=== PATIENT | female | born 1950 | race Caucasian/White ===

== ENCOUNTER 2016-09-01 16:12 | Inpatient (IN) | payer MEDICARE, OTHER ==
[2016-09-01] VITALS (8 sets, daily range): BP systolic 108–159; BP diastolic 61–74; PULSE 72–103; RESP 18–20; TEMP 99.6–104.5; O2SAT 94–97
[~2016-09-01] VITALS: Ht 162.6 cm; Wt 89.0 kg
[2016-09-01 17:51] LABS: BLOOD, URINE TRACE (NEG); GLUCOSE,URINE NEG (NEG); KETONE, URINE NEG (NEG); NITRITE,URINE NEG (NEG)
[2016-09-01] MEDS ORDERED: CLON.5 PO (17:52)
[2016-09-01] MEDS ORDERED: MONT10TA2 PO (17:52)
[2016-09-01] MEDS ORDERED: ALBUAER3 INH (17:52)
[2016-09-01] MEDS ORDERED: MACR100C2 PO (17:52)
[2016-09-01] MEDS ORDERED: ACETAMINOPHEN 500 MG CPLT PO ONE (18:00)
[2016-09-01 18:04] LABS: URINE COLOR YELLOW (YELLW/STRAW)
[2016-09-01 18:05] LABS: MUCUS URINE OCC /lpf (OCC); SQUAMOUS EPITHELIAL CELL URINE 0-5 /hpf (0-5)
[2016-09-01 18:06] LABS: BACTERIA, URINE OCC /hpf; COMMENT (UR) CULTURE INDICATED; CULTURE IF INDICATED CULTURE INDICATED; WBC, URINE 15-19 /hpf (0-5)
[2016-09-01] MEDS ORDERED: SODIUM CHLOR 0.9% 1000 ML INJ 1,000 ML IV ONE ×2 (18:15)
--- NOTE | 2016-09-01 18:31 | PD ---
HPI Chief Complaint: GI Complaint Time Seen by Provider: 17:58 Travel History International Travel<30 days: No Contact w/Intl Traveler<30days: No Traveled to known affect area: No History of Present Illness HPI 66-year-old female says she is having diarrhea and generalized achiness. She is visiting from [place]. She had a Z-Bhavesh for a respiratory infection on August 05. August 24 she went to her doctor with suprapubic pain. A urine culture was obtained which showed 45,000 colonies of enterococcus which was sensitive to Cipro and Macrobid. She was initially started on Cipro. After a few days she was not feeling better so she called her doctor and was changed to Macrobid is currently on Macrobid today she is complaining of loose stools and aching all over. She has had fever. She gets Botox injections because of incontinence PFSH Past Medical History Asthma: Yes Anxiety: Yes Medical other: Yes (ALLERGIES) Respiratory: Yes (ASTHMA) Immunizations Current: Yes Influenza Vaccination: Yes ?: Not Menopausal: Yes Past Surgical History Appendectomy: Yes Cholecystectomy: Yes Social History Alcohol Use: Yes (VERY RARE) Tobacco Use: No (FORMER) Substance Use: No Allergies-Medications (Allergen,Severity, Reaction): Coded Allergies: Ceclor (Verified Allergy, Unknown, ITCHING, 09/01/16) Sulfa (Verified Allergy, Unknown, Anaphylaxis, 09/01/16) Biaxin (Verified Adverse Reaction, Unknown, STOMACHE PAIN, 09/01/16) Reported Meds & Prescriptions Reported Meds & Active Scripts Active Reported Macrobid (Nitrofurantoin Monoh/Nitrofur Macro) 100 Mg Cap 100 Mg PO BID Proair Hfa 8.5 GM Inh (Albuterol Sulfate) 90 Mcg/Act Aer 2 Puff INH BID 108 mcg/actuation Singulair (Montelukast Sodium) 10 Mg Tab 10 Mg PO HS Klonopin (Clonazepam) 0.5 Mg Tab 0.5 Mg PO TID Review of Systems General / Constitutional: Positive: Fever, Chills Eyes: No: Diploplia HENT: Positive: Headaches Cardiovascular: No: Chest Pain or Discomfort, Palpitations Respiratory: No: Cough, Shortness of Breath Gastrointestinal: Positive: Diarrhea, No: Hematemesis Genitourinary: No: Urgency, Frequency Musculoskeletal: Positive: Myalgias, Arthralgias Skin: No Rash, No Itching Neurologic: Positive: Weakness, Headache, No: Dizziness, Change in Mentation Endocrine: No: Heat Intolerance, Cold Intolerance Hematologic/Lymphatic: No: Easy Bruising Physical Exam Narrative GENERAL: Well-developed female, temperature is 104.1 SKIN: Warm and dry. HEAD: Atraumatic. Normocephalic. EYES: Pupils equal and round. No scleral icterus. No injection or drainage. ENT: No nasal bleeding or discharge. Mucous membranes pink and moist. NECK: Trachea midline. No JVD. CARDIOVASCULAR: Regular rate and rhythm. No murmur appreciated. RESPIRATORY: No accessory muscle use. Clear to auscultation. Breath sounds equal bilaterally. GASTROINTESTINAL: Abdomen soft, non-tender, nondistended. Hepatic and splenic margins not palpable. MUSCULOSKELETAL: No obvious deformities. No clubbing. No cyanosis. No edema. NEUROLOGICAL: Awake and alert. No obvious cranial nerve deficits. Motor grossly within normal limits. Normal speech. PSYCHIATRIC: Appropriate mood and affect; insight and judgment normal. Data Data Last Documented VS Vital Signs Date Time Temp Pulse Resp B/P Pulse Ox O2 Delivery O2 Flow Rate FiO2 09/01/16 18:41 94 18 132/61 96 Room Air 09/01/16 17:39 104.5 Orders Urinalysis - C+S If Indicated (09/01/16 17:23) Acetaminophen (Tylenol) (09/01/16 18:00) Urine Culture (09/01/16 17:18) Complete Blood Count With Diff (09/01/16 18:11) Comprehensive Metabolic Panel (09/01/16 18:11) Lactic Acid Sepsis Protocol (09/01/16 18:11) Magnesium (Mg) (09/01/16 18:11) Influenzae A/B Antigen (09/01/16 18:11) Blood Culture (09/01/16 18:11) Blood Glucose (09/01/16 18:11) Ecg Monitoring (09/01/16 18:11) Iv Access Insert/Monitor (09/01/16 18:11) Oximetry (09/01/16 18:11) Oxygen Administration (09/01/16 18:11) Sodium Chlor 0.9% 1000 Ml Inj (Ns 1000 M (09/01/16 18:15) Sodium Chlor 0.9% 1000 Ml Inj (Ns 1000 M (09/01/16 18:15) C Diff Toxin Pcr (09/01/16 19:02) Ibuprofen (Motrin) (09/01/16 19:30) Labs Laboratory Tests Test 09/01/16 09/01/16 17:18 18:30 Urine Color YELLOW Urine Turbidity SLIGHT Urine pH 7.0 Urine Specific [place] 1.016 Urine Protein TRACE mg/dL Urine Glucose (UA) NEG mg/dL Urine Ketones NEG mg/dL Urine Occult Blood TRACE Urine Nitrite NEG Urine Bilirubin NEG Urine Leukocyte Esterase NEG Urine RBC 4-9 /hpf Urine WBC 15-19 /hpf Urine WBC Clumps OCC Urine Squamous Epithelial 0-5 /hpf Cells Urine Bacteria OCC /hpf Urine Mucus OCC /lpf Microscopic Urinalysis Comment CULTURE INDICATED White Blood Count 9.9 TH/MM3 Red Blood Count 4.59 MIL/MM3 Hemoglobin 13.8 GM/DL Hematocrit 41.6 % Mean Corpuscular Volume 90.7 FL Mean Corpuscular Hemoglobin 30.0 PG Mean Corpuscular Hemoglobin 33.1 % Concent Red Cell Distribution Width 14.5 % Platelet Count 294 TH/MM3 Mean Platelet Volume 7.8 FL Neutrophils (%) (Auto) 83.5 % Lymphocytes (%) (Auto) 3.2 % Monocytes (%) (Auto) 6.2 % Eosinophils (%) (Auto) 4.3 % Basophils (%) (Auto) 2.8 % Neutrophils # (Auto) 8.3 TH/MM3 Lymphocytes # (Auto) 0.3 TH/MM3 Monocytes # (Auto) 0.6 TH/MM3 Eosinophils # (Auto) 0.4 TH/MM3 Basophils # (Auto) 0.3 TH/MM3 CBC Comment DIFF FINAL Differential Comment Sodium Level 139 MEQ/L Potassium Level 3.6 MEQ/L Chloride Level 107 MEQ/L Carbon Dioxide Level 24.6 MEQ/L Anion Gap 7 MEQ/L Blood Urea Nitrogen 12 MG/DL Creatinine 0.88 MG/DL Estimat Glomerular Filtration 64 ML/MIN Rate Random Glucose 107 MG/DL Lactic Acid Level 1.2 mmol/L Calcium Level 8.7 MG/DL Magnesium Level 2.2 MG/DL Total Bilirubin 0.4 MG/DL Aspartate Amino Transf 17 U/L (AST/SGOT) Alanine Aminotransferase 25 U/L (ALT/SGPT) Alkaline Phosphatase 76 U/L Total Protein 7.5 GM/DL Albumin 3.6 GM/DL MDM Medical Decision Making Medical Screen Exam Complete: Yes Emergency Medical Condition: Yes Medical Record Reviewed: Yes Differential Diagnosis Differential includes UTI, failure of outpatient treatment, C. difficile Narrative Course White count is 9000. Patient does have a persistent UTI with 15-19 white cells. She will be admitted Diagnosis Primary Impression: Urinary tract infection Qualified Code: N30.00 - Acute cystitis without hematuria Admitting Information Admitting Physician Requests: Admit Houston Barrera MD Sep 01, 2016 18:31
[2016-09-01 18:48] LABS: AUTOMATED NEUTROPHIL # 8.3 TH/MM3 (1.8-7.7); BASOPHIL # 0.3 TH/MM3 (0-0.2); BASOPHIL % 2.8 % (0.0-2.0); EOSINOPHIL # 0.4 TH/MM3 (0-0.4); EOSINOPHIL % 4.3 % (0.0-4.0); HEMATOCRIT 41.6 % (35.0-46.0); LYMPH % 3.2 % (9.0-44.0); LYMPHOCYTE # 0.3 TH/MM3 (1.0-4.8); MEAN CELL VOLUME 90.7 FL (80.0-100.0); MEAN CORPUSCULAR HGB CONC 33.1 % (32.0-36.0); MONO % 6.2 % (0.0-8.0); NEUT % 83.5 % (16.0-70.0); PLATELET COUNT 294 TH/MM3 (150-450); RED BLOOD COUNT 4.59 MIL/MM3 (4.00-5.30); RED CELL DISTRIBUTION WIDTH 14.5 % (11.6-17.2); WHITE BLOOD COUNT 9.9 TH/MM3 (4.0-11.0)
[2016-09-01 18:56] LABS: HEMO FLAGS DIFF FINAL
[2016-09-01 19:00] LABS: CHLORIDE 107 MEQ/L (98-107); POTASSIUM 3.6 MEQ/L (3.5-5.1); SODIUM (NA) 139 MEQ/L (136-145)
[2016-09-01 19:04] LABS: ANION GAP 7 MEQ/L (5-15); BICARBONATE 24.6 MEQ/L (21.0-32.0); BLOOD UREA NITROGEN 12 MG/DL (7-18); MAGNESIUM 2.2 MG/DL (1.5-2.5)
[2016-09-01 19:07] LABS: ALT (GPT) 25 U/L (10-53); AST (GOT) 17 U/L (15-37); GLOMERULAR FILTRATION RATE 64 ML/MIN (>89)
[2016-09-01 19:08] LABS: TOTAL BILIRUBIN ADULT 0.4 MG/DL (0.2-1.0)
[2016-09-01 19:10] LABS: ALKALINE PHOSPHATASE 76 U/L (45-117)
[2016-09-01] MEDS ORDERED: IBUPROFEN 600 MG TAB PO ONE (19:30)
[2016-09-01] MEDS ORDERED: cefTRIAXone INJ 1,000 MG in SODIUM CHLORIDE 0.9% INJ 100 ML IV ONE (20:00)
[2016-09-01] MEDS ORDERED: MORPHINE SULFATE 4 MG/ML INJ IV PRN (20:15)
[2016-09-01] MEDS ORDERED: BISACODYL 10 MG SUPP PR PRN (20:15)
[2016-09-01] MEDS ORDERED: SODIUM CHLORIDE 0.9% FLUSH 5 ML FLUSH FLUSH PRN (20:15)
[2016-09-01] MEDS ORDERED: ACETAMINOPHEN 325 MG TAB PO PRN (20:15)
[2016-09-01] MEDS ORDERED: ONDANSETRON HCL 4 MG/2 ML VIAL IVP PRN (20:15)
[2016-09-01] MEDS ORDERED: TOPA100T11 PO (22:27)
[2016-09-01] MEDS ORDERED: SPIRCAP INH (22:28)
[2016-09-01] MEDS: SODIUM CHLOR 0.9% 1000 ML INJ 1,000 ML IV SCH (22:32)
[2016-09-01] MEDS: SODIUM CHLORIDE 0.9% FLUSH 5 ML FLUSH FLUSH SCH (23:30)
[2016-09-01] MEDS: ALBUTEROL SULFATE 90 MCG/ACT HFA 8 GM INHALER INH SCH (23:30)
[2016-09-01] MEDS: MONTELUKAST SODIUM 10 MG TAB PO SCH (23:30)
[2016-09-02] VITALS (8 sets, daily range): BP systolic 87–133; BP diastolic 54–76; PULSE 67–90; RESP 18–20; TEMP 98.7–101; O2SAT 94–99
[2016-09-02] MEDS ORDERED: SODIUM CHLOR 0.9% 1000 ML INJ 1,000 ML IV ONE (05:15)
[2016-09-02] MEDS: RESP: ALBUTEROL 2.5 MG/IPRATROPIUM 0.5 MG NEB (PRN) NEB ×2 (05:44→19:28)
[2016-09-02 05:46] LABS: AUTOMATED NEUTROPHIL # 5.5 TH/MM3 (1.8-7.7); BASOPHIL % 0.4 % (0.0-2.0); EOSINOPHIL # 0.4 TH/MM3 (0-0.4); EOSINOPHIL % 5.9 % (0.0-4.0); HEMATOCRIT 37.5 % (35.0-46.0); HEMO FLAGS DIFF FINAL; LYMPH % 8.8 % (9.0-44.0); LYMPHOCYTE # 0.6 TH/MM3 (1.0-4.8); MEAN CELL VOLUME 90.9 FL (80.0-100.0); MEAN CORPUSCULAR HEMOGLOBIN 29.8 PG (27.0-34.0); MEAN CORPUSCULAR HGB CONC 32.8 % (32.0-36.0); MONO % 6.9 % (0.0-8.0); PLATELET COUNT 269 TH/MM3 (150-450); RED BLOOD COUNT 4.13 MIL/MM3 (4.00-5.30); RED CELL DISTRIBUTION WIDTH 13.8 % (11.6-17.2)
[2016-09-02 05:59] LABS: CHLORIDE 114 MEQ/L (98-107); POTASSIUM 3.6 MEQ/L (3.5-5.1); SODIUM (NA) 146 MEQ/L (136-145)
[2016-09-02] MEDS: SODIUM CHLOR 0.9% 1000 ML INJ 1,000 ML IV SCH ×2 (06:13→16:19)
[2016-09-02 07:06] LABS: ALKALINE PHOSPHATASE 65 U/L (45-117); ALT (GPT) 28 U/L (10-53); ANION GAP 8 MEQ/L (5-15); AST (GOT) 25 U/L (15-37); BICARBONATE 24.5 MEQ/L (21.0-32.0); BLOOD UREA NITROGEN 12 MG/DL (7-18); GLOMERULAR FILTRATION RATE 76 ML/MIN (>89); TOTAL BILIRUBIN ADULT 0.3 MG/DL (0.2-1.0)
[2016-09-02] MEDS: SODIUM CHLORIDE 0.9% FLUSH 5 ML FLUSH FLUSH SCH ×2 (08:58→20:00)
[2016-09-02] MEDS: clonazePAM 0.5 MG TAB PO SCH ×3 (08:58→17:01)
[2016-09-02] MEDS: ALBUTEROL SULFATE 90 MCG/ACT HFA 8 GM INHALER INH SCH ×2 (08:59→20:09)
--- NOTE | 2016-09-02 12:13 | HHI.HP ---
[facility] Primary [facility] Physician Non-Staff Admission Diagnosis URINARY TRACT INFECTION Diagnoses: Chief Complaint: Dysuria and myalgias Travel History International Travel<30 Days: No Contact w/Intl Traveler <30 Da: No Traveled to Known Affected Are: No History of Present Illness Patient is a 66-year-old female with a history of urinary incontinence for which she has been receiving Botox injections. She is visiting here from [place] and previously saw her primary doctor with complaints of dysuria. Apparently she had a urine culture and which per her report was enterococcus sensitive to Cipro and Macrobid. She was given these antibiotics and felt worse so she came to the hospital. Here she has had a fever, chills, been hypotensive and with a slight increase in her heart rate. She appears septic with the UTI. Review of Systems Eyes: DENIES: Blurred vision, Diplopia, Eye inflammation, Eye pain, Vision loss , Photosensitivity, Double Vision Ears, nose, mouth, throat: DENIES: Tinnitus, Hearing loss, Vertigo, Nasal discharge, Oral lesions, Throat pain, Hoarseness, Ear Pain, Running Nose, Epistaxis, Sinus Pain, Toothache, Odynophagia Respiratory: DENIES: Apneas, Cough, Snoring, Wheezing, Hemoptysis, Sputum production, Shortness of breath Cardiovascular: DENIES: Chest pain, Palpitations, Syncope, Dyspnea on Exertion , PND, Lower Extremity Edema, Orthopnea, Claudication Gastrointestinal: COMPLAINS OF: Constipation, DENIES: Abdominal pain, Black stools, Bloody stools, Diarrhea, Nausea, Vomiting, Difficulty Swallowing, Anorexia Genitourinary: COMPLAINS OF: Urinary incontinence Musculoskeletal: DENIES: Joint pain, Muscle aches, Stiffness, Joint Swelling, Back pain, Neck pain Integumentary: DENIES: Abnormal pigmentation, Pruritus, Rash, Nail changes, Breast masses, Breast skin changes, Nipple discharge Hematologic/lymphatic: DENIES: Bruising, Lymphadenopathy Neurologic: DENIES: Abnormal gait, Headache, Localized weakness, Paresthesias, Seizures, Speech Problems, Tremor, Poor Balance Psychiatric: DENIES: Anxiety, Confusion, Mood changes, Depression, Hallucinations, Agitation, Suicidal Ideation, Homicidal Ideation, Delusions Past Family Social History Past Medical History Asthma Recurrent urinary tract infection, recurrent constipation Past Surgical History GB Reported Medications Reviewed in the medical record recently completed Macrodantin and Cipro for urinary tract infection Allergies: Coded Allergies: Ceclor (Verified Allergy, Unknown, ITCHING, 09/01/16) Sulfa (Verified Allergy, Unknown, Anaphylaxis, 09/01/16) Biaxin (Verified Adverse Reaction, Unknown, STOMACHE PAIN, 09/01/16) Active Ordered Medications Reviewed in the medical record Family History Father from COPD, mother from a stroke Social History No current tobacco or alcohol dependency, visiting from [place] Physical Exam Vital Signs Vital Signs Date Time Temp Pulse Resp B/P Pulse Ox O2 Delivery O2 Flow Rate FiO2 09/02/16 08:00 99.0 78 18 126/63 96 09/02/16 05:45 95 21 09/02/16 04:44 98.7 67 20 87/54 99 09/02/16 00:00 99.6 90 20 108/63 94 09/01/16 23:00 72 09/01/16 22:00 99.6 90 20 108/63 94 09/01/16 20:24 101.3 09/01/16 19:41 103.1 89 20 132/74 95 09/01/16 18:41 94 18 132/61 96 Room Air 09/01/16 18:05 96 Room Air 09/01/16 18:05 20 96 Room Air 09/01/16 17:39 104.5 103 20 159/72 97 Room Air 09/01/16 17:39 20 09/01/16 16:23 103.8 103 20 146/74 96 Physical Exam GENERAL: This is a well-nourished, well-developed patient, in no apparent distress. SKIN: No rashes, ecchymoses or lesions. Cool and dry. HEAD: Atraumatic. Normocephalic. No temporal or scalp tenderness. EYES: Pupils equal round and reactive. Extraocular motions intact. No scleral icterus. No injection or drainage. ENT: Nose without bleeding, purulent drainage or septal hematoma. Throat without erythema, tonsillar hypertrophy or exudate. Uvula midline. Airway patent. NECK: Trachea midline. No JVD or lymphadenopathy. Supple, nontender, no meningeal signs. CARDIOVASCULAR: Regular rate and rhythm without murmurs, gallops, or rubs. RESPIRATORY: Clear to auscultation. Breath sounds equal bilaterally. No wheezes , rales, or rhonchi. GASTROINTESTINAL: Abdomen soft, non-tender, nondistended. No hepato-splenomegaly , or palpable masses. No guarding. MUSCULOSKELETAL: Extremities without clubbing, cyanosis, or edema. No joint tenderness, effusion, or edema noted. No calf tenderness. Negative Homans sign bilaterally. NEUROLOGICAL: Awake and alert. Cranial nerves II through XII intact. Motor and sensory grossly within normal limits. Five out of 5 muscle strength in all muscle groups. Normal speech. Laboratory Laboratory Tests Test 09/01/16 09/01/16 09/02/16 17:18 18:30 05:16 Urine Color YELLOW Urine Turbidity SLIGHT Urine pH 7.0 Urine Specific [place] 1.016 Urine Protein TRACE Urine Glucose (UA) NEG Urine Ketones NEG Urine Occult Blood TRACE Urine Nitrite NEG Urine Bilirubin NEG Urine Leukocyte Esterase NEG Urine RBC 4-9 Urine WBC 15-19 Urine WBC Clumps OCC Urine Squamous Epithelial 0-5 Cells Urine Bacteria OCC Urine Mucus OCC Microscopic Urinalysis Comment CULTURE INDICATED White Blood Count 9.9 7.0 Red Blood Count 4.59 4.13 Hemoglobin 13.8 12.3 Hematocrit 41.6 37.5 Mean Corpuscular Volume 90.7 90.9 Mean Corpuscular Hemoglobin 30.0 29.8 Mean Corpuscular Hemoglobin 33.1 32.8 Concent Red Cell Distribution Width 14.5 13.8 Platelet Count 294 269 Mean Platelet Volume 7.8 7.6 Neutrophils (%) (Auto) 83.5 78.0 Lymphocytes (%) (Auto) 3.2 8.8 Monocytes (%) (Auto) 6.2 6.9 Eosinophils (%) (Auto) 4.3 5.9 Basophils (%) (Auto) 2.8 0.4 Neutrophils # (Auto) 8.3 5.5 Lymphocytes # (Auto) 0.3 0.6 Monocytes # (Auto) 0.6 0.5 Eosinophils # (Auto) 0.4 0.4 Basophils # (Auto) 0.3 0.0 CBC Comment DIFF FINAL DIFF FINAL Differential Comment Sodium Level 139 146 Potassium Level 3.6 3.6 Chloride Level 107 114 Carbon Dioxide Level 24.6 24.5 Anion Gap 7 8 Blood Urea Nitrogen 12 12 Creatinine 0.88 0.76 Estimat Glomerular Filtration 64 76 Rate Random Glucose 107 98 Lactic Acid Level 1.2 1.1 Calcium Level 8.7 7.6 Magnesium Level 2.2 Total Bilirubin 0.4 0.3 Aspartate Amino Transf 17 25 (AST/SGOT) Alanine Aminotransferase 25 28 (ALT/SGPT) Alkaline Phosphatase 76 65 Total Protein 7.5 6.0 Albumin 3.6 2.7 Date/Time Procedure Status Source Growth 09/01/16 18:30 Influenza Types A,B Antigen ([facility]AR[facility]) - Final Complete Nasal Aspirate NEGATIVE FOR FLU A AND B ANTIGEN.... 09/01/16 18:30 Aerobic Blood Culture - Preliminary Resulted Blood Peripheral NO GROWTH IN 1 DAY 09/01/16 18:30 Anaerobic Blood Culture - Preliminary Resulted Blood Peripheral NO GROWTH IN 1 DAY 09/01/16 17:18 Urine Culture Received Urine Clean Catch Pending Result Diagram: 09/02/1651509/02/16515 Septic Shock Reassessment Heart: Regular rate and rhythm Lungs: Clear Skin: Warm Peripheral Pulses: Bounding Right Radial Bounding Left Radial Bounding Right Popliteal Bounding Left Popliteal Bounding Right Dorsalis Pedis Bounding Left Dorsalis Pedis Bounding Right Posterior Tibial Bounding Left Posterior Tibial Assessment and Plan Problem List: (1) Urinary tract infection ICD Code: N39.0 Status: Acute Plan: Continue with Rocephin for UTI, follow-up urine cultures (2) Sepsis ICD Code: A41.9 Status: Acute Plan: Patient tachycardic, hypotensive and with a temperature 101.3. Likely due to UTI, continue with blood cultures, empiric antibiotics, Rocephin for presumed UTI CXR pending Physician Certification 2 Midnight Certification Type: Admission for Inpatient Services Order for Inpatient Services The services are ordered in accordance with Medicare regulations or non- Medicare payer requirements, as applicable. In the case of services not specified as inpatient-only, they are appropriately provided as inpatient services in accordance with the 2-midnight benchmark. Estimated LOS (days): 3 3 days is the estimated time the patient will need to remain in the hospital, assuming treatment plan goals are met and no additional complications. Post-Hospital Plan: Home Problem Qualifiers (1) Urinary tract infection: Qualified Code: N30.00 - Acute cystitis without hematuria Teresa Cedillo MD Sep 02, 2016 12:13
[2016-09-02] MEDS: TIOTROPIUM BROMIDE 18 MCG INH INH SCH (13:00)
[2016-09-02] MEDS: ACETAMINOPHEN/HYDROcodone 325 MG/5 MG TAB PO PRN ×2 (13:22→20:08)
--- NOTE | 2016-09-02 13:37 | RADHPO ---
EXAM DATE/TIME: 09/02/2016 12:33 [facility] COMPARISON: No previous studies available for comparison. INDICATIONS : Patient states fever. MEDICAL HISTORY : None. SURGICAL HISTORY : None. ENCOUNTER: Initial ACUITY: 1 day PAIN SCORE: 0/10 LOCATION: Bilateral chest FINDINGS: There are minimal parenchymal changes in the right base. The left lung is clear. The heart and pulm onary vascularity are normal. Mild hyperinflation is evident. CONCLUSION: Minimal parenchymal changes right base with hyperinflation. Raulito Rene MD FACR on September 02, 2016 at 13:31 Board Certified Radiologist. This report was verified electronically.
[2016-09-02] MEDS: HYDROCORTISONE 1% CREAM 30 GM TOPICAL SCH (16:19)
[2016-09-02] MEDS ORDERED: FAMOTIDINE 20 MG TAB PO ONE (16:45)
[2016-09-02] MEDS ORDERED: methylPREDNISolone SOD SUCC 40 MG/1 ML VIAL IV PUSH ONE (17:00)
[2016-09-02] MEDS: MONTELUKAST SODIUM 10 MG TAB PO SCH (20:08)
[2016-09-02] MEDS ORDERED: cefTRIAXone INJ 1,000 MG in SODIUM CHLORIDE 0.9% INJ 100 ML IV SCH (21:00)
[2016-09-02] MEDS ORDERED: TOPIRAMATE 100 MG TAB PO SCH (21:00)
[2016-09-03] VITALS: BP 102/58; PULSE 55; RESP 18; TEMP 97.2; O2SAT 98
[2016-09-03 04:27] VITALS: BP 98/60; PULSE 61; RESP 18; TEMP 96.6; O2SAT 98
[2016-09-03 08:00] VITALS: BP 113/75; PULSE 67; RESP 20; TEMP 97.7; O2SAT 98
[2016-09-03] MEDS: clonazePAM 0.5 MG TAB PO SCH (08:12)
[2016-09-03] MEDS: HYDROCORTISONE 1% CREAM 30 GM TOPICAL SCH (08:13)
[2016-09-03] MEDS: ALBUTEROL SULFATE 90 MCG/ACT HFA 8 GM INHALER INH SCH (08:14)
[2016-09-03] MEDS: SODIUM CHLORIDE 0.9% FLUSH 5 ML FLUSH FLUSH SCH (08:14)
[2016-09-03] MEDS: TIOTROPIUM BROMIDE 18 MCG INH INH SCH (08:14)
[2016-09-03] MEDS: ACETAMINOPHEN/HYDROcodone 325 MG/5 MG TAB PO PRN (08:35)
[2016-09-03] MEDS ORDERED: DOXY100C PO (11:16)
--- NOTE | 2016-09-03 11:20 | HHI.DS ---
Discharge Summary Admission Date Sep 01, 2016 at 19:35 Discharge Date: Sep 03, 2016 Admitting Diagnosis URINARY TRACT INFECTION (1) Urinary tract infection ICD Code: N39.0 (2) Sepsis ICD Code: A41.9 Procedures None Brief History - From Admission Patient is a 66-year-old female with a history of urinary incontinence for which she has been receiving Botox injections. She is visiting here from [place] and previously saw her primary doctor with complaints of dysuria. Apparently she had a urine culture and which per her report was enterococcus sensitive to Cipro and Macrobid. She was given these antibiotics and felt worse so she came to the hospital. Here she has had a fever, chills, been hypotensive and with a slight increase in her heart rate. She appears septic with the UTI. CBC/BMP: 09/02/16 0516 09/02/16 0516 Significant Findings Laboratory Tests Test 09/01/16 09/01/16 09/02/16 17:18 18:30 05:16 Urine Occult Blood TRACE (NEG) Urine RBC 4-9 /hpf (0-3) Urine WBC 15-19 /hpf (0-5) Urine WBC Clumps OCC (NONE) Urine Bacteria OCC /hpf (NONE) Neutrophils (%) (Auto) 83.5 % 78.0 % (16.0-70.0) (16.0-70.0) Lymphocytes (%) (Auto) 3.2 % 8.8 % (9.0-44.0) (9.0-44.0) Eosinophils (%) (Auto) 4.3 % (0.0-4.0) 5.9 % (0.0-4.0) Basophils (%) (Auto) 2.8 % (0.0-2.0) Neutrophils # (Auto) 8.3 TH/MM3 (1.8-7.7) Lymphocytes # (Auto) 0.3 TH/MM3 0.6 TH/MM3 (1.0-4.8) (1.0-4.8) Basophils # (Auto) 0.3 TH/MM3 (0-0.2) Estimat Glomerular Filtration 64 ML/MIN (>89) 76 ML/MIN (>89) Rate Random Glucose 107 MG/DL (74-106) Sodium Level 146 MEQ/L (136-145) Chloride Level 114 MEQ/L (98-107) Calcium Level 7.6 MG/DL (8.5-10.1) Total Protein 6.0 GM/DL (6.4-8.2) Albumin 2.7 GM/DL (3.4-5.0) Imaging Last Impressions Chest X-Ray 09/02/16 0000 Signed Impressions: Service Date/Time: Friday, September 02, 2016 12:33 - CONCLUSION: Minimal parenchymal changes right base with hyperinflation. Raulito Rene MD FACR PE at Discharge GENERAL: This is a well-nourished, well-developed patient, in no apparent distress. CARDIOVASCULAR: Regular rate and rhythm without murmurs, gallops, or rubs. RESPIRATORY: Clear to auscultation. Breath sounds equal bilaterally. No wheezes , rales, or rhonchi. GASTROINTESTINAL: Abdomen soft, non-tender, nondistended. Normal active bowel sounds MUSCULOSKELETAL: Extremities without clubbing, cyanosis, or edema. NEURO: Alert & Oriented x4 to person, place, time, situation. Moves all ext x4 Pt update on day of discharge Patient seen today. Rash greatly improved overnight. Patient did have a temperature of 101 yesterday but has not had any fevers since. She feels much better and is ambulatory and requested to go home. Urine culture showed mixed jhon which is probably contaminants, x-ray unremarkable and blood cultures are still negative at 2 days. This point patient will benefit from further primary care. Hospital Course This patient is a 66-year-old female who came to the hospital complaining of constipation, myalgias and dysuria. She did have she did have recent antibiotics 2 courses per her primary care physician. Patient says that her dysuria continued and she began having subjective chills. She came to the hospital where she was febrile. She was monitored for this. Blood cultures and urine cultures were taken. Chest x-ray was done. Urine cultures that show mixed jhon which is probably contaminants. Blood cultures are still negative. Patient did have a rash with the Rocephin that was given initially for urinary tract infection this improved with Solu-Medrol, antihistamine and cortisone cream. Patient has had several bowel movements and says that is what made her feel the best. There has been no new complaints and the patient has requested to go home back to [place] to follow-up with her primary care physician. Pt Condition on Discharge: Good Discharge Disposition: Discharge Home Discharge Time: > 30 minutes Discharge Instructions DIET: Follow Instructions for: As Tolerated, No Restrictions Activities you can perform: Regular-No Restrictions Follow up Referrals: PCP Follow-up - 1 Week New Medications: Doxycycline Hyclate (Doxycycline Hyclate) 100 Mg Cap 100 MG PO BID Infection #20 Ref 0 CAP Continued Medications: Albuterol 8.5 GM Inh (Proair Hfa 8.5 GM Inh) 90 Mcg/Act Aer 2 PUFF INH BID 108 mcg/actuation ASTHMA #1 Ref 0 INHALER Clonazepam (Klonopin) 0.5 Mg Tab 0.5 MG PO TID #90 Ref 0 TAB Montelukast (Singulair) 10 Mg Tab 10 MG PO HS #30 Ref 0 TAB Tiotropium Inh (Spiriva Handihaler) 18 Mcg Cap 18 MCG INH DAILY 1 capsule = 18 mcg COPD #30 Ref 0 CAP Topiramate (Topamax) 100 Mg Tab 100 MG PO daily at bedtime Control Seizures #60 Ref 0 TAB Discontinued Medications: Nitrofurantoin Monohydrate Macrocrystals (Macrobid) 100 Mg Cap 100 MG PO BID Infection Ref 0 CAP Teresa Cedillo MD Sep 03, 2016 11:20
--- NOTE | 2016-09-03 11:20 | HHI.DCPOC ---
Discharge Care Plan Diagnosis: (1) FUO (fever of unknown origin) Goals to Promote Your Health * To prevent worsening of your condition and complications * To maintain your health at the optimal level Directions to Meet Your Goals Take your medications as prescribed Follow your dietary instruction Follow activity as directed Keep your appointments as scheduled Take your immunizations and boosters as scheduled If your symptoms worsen call your PCP, if no PCP go to Urgent Care Center or Emergency Room Smoking is Dangerous to Your Health. Avoid second hand smoke Call the 24-hour hour crisis hotline for domestic abuse at Teresa Cedillo MD Sep 03, 2016 11:20
== END 2016-09-03 12:20 | disposition home or self-care (01) | DRG 872 ==
LOC: PHED 16:12 → PHEDA 19:35 → PH3A 21:35
PROVIDERS: ADMIT Hospitalist; ATTEND Hospitalist
DX: A41.9 Sepsis, unspecified organism (principal); N30.00 Acute cystitis without hematuria; R32 Unspecified urinary incontinence; J45.909 Unspecified asthma, uncomplicated; K59.00 Constipation, unspecified; L27.0 Generalized skin eruption due to drugs and medicaments taken internally; T36.1X5A Adverse effect of cephalosporins and other beta-lactam antibiotics, initial encounter; Y92.230 Patient room in hospital as the place of occurrence of the external cause; Z88.1 Allergy status to other antibiotic agents; Z88.2 Allergy status to sulfonamides
CPT/HCPCS: 71020; 80053; 81001; 83605; 83735; 85025; 87040; 87086; 87804; 94640; 94664; 96360; J0696; J2920; J7030